=== PATIENT | male | born 1975 | race Hispanic/Latino ===

== ENCOUNTER 2017-02-01 22:41 | Emergency (ER) | payer OTHER ==
[2017-02-01 23:00] VITALS: BP 140/100
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
== END 2017-02-02 02:40 | disposition home or self-care (01) ==
LOC: ED 22:41
DX: Z04.1 Encounter for examination and observation following transport accident (principal)
CPT/HCPCS: 36415; 80307; 99282